=== PATIENT | female | born 1975 | race African-American/Black ===

== ENCOUNTER 2016-09-11 08:47 | Emergency (ER) | payer MEDICARE, MEDICAID ==
[~2016-09-11] VITALS: Ht 167.6 cm; Wt 100.0 kg
[~2016-09-11 08:47] MED LIST: ASPI325T PO; GLUCTAB OR; IRON325T2 OR; LISI-363 PO; ZOCO40TA PO
[2016-09-11 09:08] VITALS: PULSE 95; RESP 22; TEMP 99.2; O2SAT 100
--- NOTE | 2016-09-11 09:08 | PD ---
HPI Chief Complaint: Abdominal Pain Time Seen by Provider: 09:07 Travel History International Travel<30 days: No Contact w/Intl Traveler<30days: No Traveled to known affect area: No History of Present Illness HPI 41-year-old female came to the emergency room with history of right-sided rib cage pain since past 2 days. It is progressively worsening. It wraps around and goes to the back as well. No history of nausea or vomiting. She denies any fever or chills or cough but her temperature was 99.2 when she was checked in. Patient is legally blind. However she is answering questions appropriately. Patient says she moved her stuff from one room to the other in the dorm and this included her suitcases as well as a bed. She thinks that might have caused this. Rest of the vital signs appear to be in acceptable limits. [facility] Past Medical History Narrative Medical List of her past medical, surgical, social and family history reviewed from the nursing note. Diabetes: Yes ?: Not LMP: 08/2016 Dilation and Curettage (D&C): Yes ([place]) Social History Alcohol Use: No Tobacco Use: No Substance Use: No Allergies-Medications (Allergen,Severity, Reaction): Coded Allergies: Iodinated Contrast Media (Verified Allergy, Severe, 11/15/11) Shellfish (Verified Allergy, Severe, 11/15/11) Iodine (Verified Allergy, 11/15/11) Comments List of her allergies reviewed from the nursing note. Reported Meds & Prescriptions Reported Meds & Active Scripts Active Lopressor (Metoprolol Tartrate) 50 Mg Tab 50 Mg PO BID Hydrocodone-Acetaminophen 5-325 mg Tab 1 Tab PO Q6H PRN Reported Glipizide 10 Mg Tab 10 Mg PO BIDAC Take 30 minutes before a meal Sodium Bicarbonate (Sodium Bicarbonate (Antacid)) 1 Pow Pow 10 Grain BID Slow Release Iron ER (Ferrous Sulfate) 50 Mg Tab 45 Mg PO DAILY Aspirin 81 Mg Chew 81 Mg CHEW DAILY Amlodipine (Amlodipine Besylate) 10 Mg Tab 10 Mg PO DAILY Lisinopril 20 Mg Tab 20 Mg PO BID Lotemax Opth Gel (Loteprednol Etabonate) 0.5 % Gel 1-2 Drop EACH EYE BID PRN Lantus Solostar Pen Inj (Insulin Glargine) 300 Unit/3 Ml Pen 50 Units SQ HS PRN Narrative Medication List of her home medications reviewed from the nursing note. Review of Systems Except as stated in HPI: all other systems reviewed are Neg Physical Exam Narrative GENERAL: Awake, alert, legally blind, moderate distress SKIN: Focused skin assessment warm/dry. Pale HEAD: Atraumatic. Normocephalic. EYES: Corneal opacity bilaterally. No scleral icterus. No injection or drainage. Pallor ENT: No nasal bleeding or discharge. Dry mucous membrane NECK: Trachea midline. No JVD. CARDIOVASCULAR: Regular rate and rhythm. No murmur appreciated. RESPIRATORY: No accessory muscle use. Clear to auscultation. Breath sounds equal bilaterally. GASTROINTESTINAL: Abdomen soft, non-tender, nondistended. Hepatic and splenic margins not palpable. MUSCULOSKELETAL: No obvious deformities. No clubbing. No cyanosis. No edema. Tender over the ninth and 10th right-sided rib laterally and posteriorly NEUROLOGICAL: Awake and alert. No obvious cranial nerve deficits. Motor grossly within normal limits. Normal speech. PSYCHIATRIC: Appropriate mood and affect; insight and judgment normal. Data Data Last Documented VS Vital Signs Date Time Temp Pulse Resp B/P Pulse Ox O2 Delivery O2 Flow Rate FiO2 09/11/16 11:15 20 09/11/16 09:58 100 Room Air 09/11/16 09:17 99.2 98 162/93 Orders Complete Blood Count With Diff (09/11/16 09:11) Comprehensive Metabolic Panel (09/11/16 09:11) Lipase (09/11/16 09:11) Urinalysis - C+S If Indicated (09/11/16 09:11) Blood Culture (09/11/16 09:11) Chest, Single Ap (09/11/16 09:11) Blood Glucose (09/11/16 09:11) Ecg Monitoring (09/11/16 09:11) Iv Access Insert/Monitor (09/11/16 09:11) Oximetry (09/11/16 09:11) Oxygen Administration (09/11/16 09:11) Ketorolac Inj (Toradol Inj) (09/11/16 09:15) Creatine Kinase (Cpk) (09/11/16 10:46) Sodium Chlor 0.9% 1000 Ml Inj (Ns 1000 M (09/11/16 11:00) Sodium Chlor 0.9% 1000 Ml Inj (Ns 1000 M (09/11/16 11:45) Diet Diabetic (09/11/16 Lunch) Labs Laboratory Tests Test 09/11/16 09:45 White Blood Count 10.4 TH/MM3 Red Blood Count 3.16 MIL/MM3 Hemoglobin 8.9 GM/DL Hematocrit 26.1 % Mean Corpuscular Volume 82.5 FL Mean Corpuscular Hemoglobin 28.2 PG Mean Corpuscular Hemoglobin 34.2 % Concent Red Cell Distribution Width 15.0 % Platelet Count 351 TH/MM3 Mean Platelet Volume 7.9 FL Neutrophils (%) (Auto) 78.7 % Lymphocytes (%) (Auto) 10.3 % Monocytes (%) (Auto) 8.8 % Eosinophils (%) (Auto) 2.0 % Basophils (%) (Auto) 0.2 % Neutrophils # (Auto) 8.2 TH/MM3 Lymphocytes # (Auto) 1.1 TH/MM3 Monocytes # (Auto) 0.9 TH/MM3 Eosinophils # (Auto) 0.2 TH/MM3 Basophils # (Auto) 0.0 TH/MM3 CBC Comment DIFF FINAL Differential Comment Urine Color LIGHT-YELLOW Urine Turbidity CLEAR Urine pH 6.5 Urine Specific [place] 1.011 Urine Protein 100 mg/dL Urine Glucose (UA) NEG mg/dL Urine Ketones NEG mg/dL Urine Occult Blood TRACE Urine Nitrite NEG Urine Bilirubin NEG Urine Urobilinogen LESS THAN 2.0 MG/DL Urine Leukocyte Esterase NEG Urine RBC 1 /hpf Urine WBC 1 /hpf Urine Squamous Epithelial 1 /hpf Cells Microscopic Urinalysis Comment CATH-CULT NOT IND Sodium Level 140 MEQ/L Potassium Level 4.2 MEQ/L Chloride Level 106 MEQ/L Carbon Dioxide Level 27.7 MEQ/L Anion Gap 6 MEQ/L Blood Urea Nitrogen 44 MG/DL Creatinine 2.61 MG/DL Estimat Glomerular Filtration 25 ML/MIN Rate Random Glucose 162 MG/DL Calcium Level 9.1 MG/DL Total Bilirubin 0.3 MG/DL Aspartate Amino Transf 9 U/L (AST/SGOT) Alanine Aminotransferase 23 U/L (ALT/SGPT) Alkaline Phosphatase 93 U/L Total Creatine Kinase 82 U/L Total Protein 7.6 GM/DL Albumin 3.3 GM/DL Lipase 194 U/L [facility] Medical Decision Making Medical Screen Exam Complete: Yes Emergency Medical Condition: Yes Medical Record Reviewed: Yes Differential Diagnosis Rib fracture, pneumonia, muscular skeletal pain Narrative Course 11:11 AM blood test results of back and patient seems to be anemic but not to the extent where a transfusion will be required. Her chemistry is suggestive of renal insufficiency possibly from dehydration. Both BUN and creatinine are high. There is no old lab value to compare with. I have ordered 1 L of IV fluid bolus and admitted CPK. Awaiting for the lab value for that. Chest x- ray was within normal limits. 11:35 AM CPKs within normal limit. However, I've ordered a second liter of IV fluid bolus. Upon reassessing the urine analysis he does show significant proteinuria. Patient could have an underlying glomerulonephropathy. I would have to recommend her to follow up with her primary care so that she could be referred to a fare collector and get a proper workup at this point. Otherwise discharging her home. She obviously will have to stay of any NSAIDs. I will discharge her home with some pain medications. 11:54 AM I discussed all the discharge instructions with the patient as I have mentioned them above at which point patient told me that she does have a fare collector who did the blood work 2 weeks ago in his office and told her that her GFR was 28% which is around the GFR we have currently. She does not remember her BUN and creatinine report. She is waiting for a renal ultrasound to be done that was ordered by the fare collector. When I mentioned to her about lisinopril to be stopped she let me know that she was wondering about it. In the past the metformin has been stopped which she used to be on for many years since that has worsening affect on the renal function as well. She is also aware of the fact that she is anemic and she is on iron pills. When I mentioned to her the hemoglobin she said that is around where she always is. Overall patient is very in tuned to with her medical condition as well as reliable and I feel comfortable discharging her home. Procedures EKG Prior to Arrival: No Diagnosis Primary Impression: Musculoskeletal pain Additional Impressions: Chest wall pain Renal insufficiency Proteinuria Qualified Code: N06.9 - Isolated proteinuria with morphologic lesion Dehydration Anemia Qualified Code: D64.9 - Anemia, unspecified type Referrals: Primary Care Physician 3 days Additional Instructions: Please follow-up with your primary care early next week. Your renal function test was grossly abnormal. Also you have large amount of protein in your urine. For this reason we have been recommended to stop taking the lisinopril which is her blood pressure medication as it would further damage the kidney. Instead he had been started on a new blood pressure medication. Your primary care should refer you to a fare collector. Do not take any medication that has NSAIDs like Motrin/ibuprofen/Aleve/Advil etc since it will damage your kidneys further. Please return to the emergency room if the condition worsens or any other new concerns. Meanwhile take the medication as per the prescription direction that has been provided to you from the emergency room. Med/Other Pt SpecificInfo: Prescription(s) given, Med Stopped (lisinopril) Scripts Metoprolol Tartrate (Lopressor)50 Mg Tab50 Mg PO BID #30 TAB Ref 0 Prov:Ki Henderson MD 09/11/16 Hydrocodone-Acetaminophen 5-325 mg Tab1 Tab PO Q6H PRN (PAIN) #15 TAB Ref 0 Prov:Ki Henderson MD 09/11/16 Disposition: 01 DISCHARGE HOME Condition: Stable Ki Henderson MD Sep 11, 2016 09:08
[2016-09-11] MEDS ORDERED: KETOROLAC TROMETHAMINE 30 MG/ML (IVP) VIAL IV PUSH ONE (09:15)
[2016-09-11 09:17] VITALS: BP 162/93; PULSE 98; RESP 22; TEMP 99.2; O2SAT 100
[2016-09-11 10:07] LABS: BLOOD, URINE TRACE (NEG); GLUCOSE,URINE NEG (NEG); KETONE, URINE NEG (NEG); NITRITE,URINE NEG (NEG); PH, URINE 6.5 (5.0-8.5); SQUAMOUS EPITHELIAL CELL URINE 1 /hpf (0-5); URINE COLOR LIGHT-YELLOW (YELLW/STRAW)
[2016-09-11 10:08] LABS: AUTOMATED NEUTROPHIL # 8.2 TH/MM3 (1.8-7.7); BASOPHIL % 0.2 % (0.0-2.0); EOSINOPHIL # 0.2 TH/MM3 (0-0.4); HEMATOCRIT 26.1 % (35.0-46.0); HEMO FLAGS DIFF FINAL; LYMPH % 10.3 % (9.0-44.0); LYMPHOCYTE # 1.1 TH/MM3 (1.0-4.8); MEAN CELL VOLUME 82.5 FL (80.0-100.0); MEAN CORPUSCULAR HEMOGLOBIN 28.2 PG (27.0-34.0); MEAN CORPUSCULAR HGB CONC 34.2 % (32.0-36.0); MONO % 8.8 % (0.0-8.0); NEUT % 78.7 % (16.0-70.0); PLATELET COUNT 351 TH/MM3 (150-450); RED BLOOD COUNT 3.16 MIL/MM3 (4.00-5.30); WHITE BLOOD COUNT 10.4 TH/MM3 (4.0-11.0)
[2016-09-11 10:10] LABS: COMMENT (UR) CATH-CULT NOT IND; CULTURE IF INDICATED CATH CULTURE NOT IND
--- NOTE | 2016-09-11 10:10 | RADRPT ---
EXAM DATE/TIME: 09/11/2016 09:28 [place] COMPARISON: No previous studies available for comparison. INDICATIONS : Chest discomfort, abdominal pain for 3 days MEDICAL HISTORY : None. SURGICAL HISTORY : None. ENCOUNTER: Initial ACUITY: 3 days PAIN SCORE: 0/10 LOCATION: Bilateral chest FINDINGS: Single AP view of the chest. The lungs are clear. Cardiomediastinal silhouette within normal limits. No evidence of pleural effusion or pneumothorax. CONCLUSION: No acute cardiopulmonary disease identified. John Boudreaux MD on September 11, 2016 at 10:08 Board Certified Radiologist. This report was verified electronically.
[2016-09-11] MEDS ORDERED: SODIPOW (10:15)
[2016-09-11] MEDS ORDERED: ASPI81CH CHEW (10:15)
[2016-09-11] MEDS ORDERED: AMLO10TA2 PO (10:15)
[2016-09-11] MEDS ORDERED: GLIP10TA6 PO (10:15)
[2016-09-11] MEDS ORDERED: LOTE0.5G EACH EYE (10:15)
[2016-09-11] MEDS ORDERED: LISI-515 PO (10:15)
[2016-09-11] MEDS ORDERED: SLOW50TA PO (10:15)
[2016-09-11] MEDS ORDERED: LANTINJ SQ (10:15)
[2016-09-11 10:34] LABS: ALT (GPT) 23 U/L (10-53); ANION GAP 6 MEQ/L (5-15); AST (GOT) 9 U/L (15-37); BICARBONATE 27.7 MEQ/L (21.0-32.0); BLOOD UREA NITROGEN 44 MG/DL (7-18); CHLORIDE 106 MEQ/L (98-107); GLOMERULAR FILTRATION RATE 25 ML/MIN (>89); POTASSIUM 4.2 MEQ/L (3.5-5.1); SODIUM (NA) 140 MEQ/L (136-145)
[2016-09-11 10:36] LABS: ALKALINE PHOSPHATASE 93 U/L (45-117); TOTAL BILIRUBIN ADULT 0.3 MG/DL (0.2-1.0)
[2016-09-11] MEDS ORDERED: SODIUM CHLOR 0.9% 1000 ML INJ 1,000 ML IV ONE ×2 (11:00→11:45)
[2016-09-11 11:15] VITALS: RESP 20
[2016-09-11] MEDS ORDERED: HYDR-3516 PO (11:39)
[2016-09-11] MEDS ORDERED: METO-309 PO (11:41)
== END 2016-09-11 15:17 | disposition home or self-care (01) ==
LOC: NEPD 08:47
DX: M79.1 Myalgia (principal); R07.89 Other chest pain; N28.9 Disorder of kidney and ureter, unspecified; R80.9 Proteinuria, unspecified; E86.0 Dehydration; D64.9 Anemia, unspecified; R05 Cough; E11.9 Type 2 diabetes mellitus without complications
CPT/HCPCS: 71010; 80053; 81001; 82550; 83690; 85025; 87040; 96361; 96374; 99284; J1885; J7030